=== PATIENT | male | born 1995 | race Caucasian/White ===

== ENCOUNTER 2019-01-08 22:16 | Emergency (ER) | payer BC ==
--- NOTE | 2019-01-08 23:13 | ED ---
Abdominal Pain/Male - HPI Summary HPI Summary: 23 yo male presents with vomiting, diarrhea, and abdominal pain. He tells me that he ate chicken wings and broccoli from the [employer] around 1800 this evening. Around 2200 he developed upper abdominal cramping and nausea. Had an episode of diarrhea and began vomiting. He took tylenol, but vomited again soon after. He called EMS due to vomiting and diarrhea for 2-3 hours this evening. Currently he is still vomiting every 20-30min, but has had not more loose stools. Endorses pain just above the umbilicus that is cramping in nature. Denies recent illness, fever, chills, SOB, chest pain, dysuria, back pain. - History of Current Complaint Chief Complaint: EDAbdPain Stated Complaint: GENERAL ILLNESS PER EMS Time Seen by Provider: 01/08/19 23:13 Hx Obtained From: Patient Onset/Duration: Sudden Onset Severity Initially: Mild Severity Currently: Mild Pain Intensity: 3 Pain Scale Used: 0-10 Numeric - Allergies/Home Medications Allergies/Adverse Reactions: Allergies Allergy/AdvReac Type Severity Reaction Status Date / Time No Known Allergies Allergy Verified 01/08/19 22:48 PMH/Surg Hx/FS Hx/Imm Hx Cardiovascular History: Denies: Hx Hypotension, Hx Hypertension Respiratory History: Denies: Hx Asthma, Hx Chronic Obstructive Pulmonary Disease (COPD) GI History: Denies: Hx Diverticulosis, Hx Gall Bladder Disease, Hx Gastroesophageal Reflux Disease Neurological History: Denies: Hx CVA, Hx Headaches - Surgical History Surgical History: None - Immunization History Immunizations Up to Date: Yes Infectious Disease History: No Infectious Disease History: Denies: Traveled Outside the [place] in Last 30 Days - Family History Known Family History: Positive: Non-Contributory - Social History Occupation: Student Lives: Dormitory/Roommates Alcohol Use: None Substance Use Type: Reports: None Smoking Status (MU): Never Smoked Tobacco Review of Systems Constitutional: Negative Eyes: Negative ENT: Negative Cardiovascular: Negative Respiratory: Negative Positive: Abdominal Pain, Vomiting, Diarrhea, Nausea Genitourinary: Negative Musculoskeletal: Negative Neurological: Negative Psychological: Normal All Other Systems Reviewed And Are Negative: No Physical Exam - Summary Physical Exam Summary: GENERAL: NAD. WDWN. No pain distress. SKIN: No rashes, sores, lesions, or open wounds. NECK: Supple. Nontender. No lymphadenopathy. CHEST: CTAB. No r/r/w. No accessory muscle use. Breathing comfortably and in no distress. CV: RRR. Pulses intact. Cap refill <2seconds ABDOMEN: Soft. NTTP. No distention or guarding. No CVA tenderness. Bowel sounds present NEURO: Alert. PSYCH: Age appropriate behavior. Triage Information Reviewed: Yes Vital Signs On Initial Exam: Initial Vitals Temp Pulse Resp BP Pulse Ox 98.2 F 78 20 119/79 100 01/08/19 22:20 01/08/19 22:20 01/08/19 22:20 01/08/19 22:20 01/08/19 22:20 Vital Signs Reviewed: Yes Procedures - Sedation Patient Received Moderate/Deep Sedation with Procedure: No Diagnostics - Vital Signs Vital Signs Temp Pulse Resp BP Pulse Ox 01/08/19 23:00 80 99 01/08/19 22:39 78 100 01/08/19 22:38 119/79 01/08/19 22:20 98.2 F 78 20 119/79 100 - Laboratory Lab Results: Laboratory Tests 01/08/19 01/08/19 01/08/19 23:38 23:40 23:40 WBC 11.7 H RBC 5.10 Hgb 16.0 Hct 47 MCV 92 MCH 31 MCHC 34 RDW 13 Plt Count 280 MPV 7.0 L Neut % (Auto) 92.1 Lymph % (Auto) 2.1 Sharkey % (Auto) 5.5 Eos % (Auto) 0.2 Baso % (Auto) 0.1 Absolute Neuts (auto) 10.8 H Absolute Lymphs (auto) 0.2 L Absolute Monos (auto) 0.6 Absolute Eos (auto) 0.0 Absolute Basos (auto) 0.0 Absolute Nucleated RBC 0.0 Nucleated RBC % 0.1 Sodium 135 Potassium 4.1 Chloride 103 Carbon Dioxide 23 Anion Gap 9 BUN 16 Creatinine 1.00 Est GFR ( Amer) 114.1 Est GFR (Non-Af Amer) 94.3 BUN/Creatinine Ratio 16.0 Glucose 148 H Lactic Acid 1.2 Calcium 10.3 Total Bilirubin 1.60 H AST 25 ALT 17 Alkaline Phosphatase 48 C-Reactive Protein 1.01 Total Protein 7.9 Albumin 4.8 Globulin 3.1 Albumin/Globulin Ratio 1.5 Lipase 14 Result Diagrams: 01/08/19 23:38 01/08/19 23:40 Lab Statement: Any lab studies that have been ordered have been reviewed, and results considered in the medical decision making process. Abdominal Pain Male Course/Dx - Course Course Of Treatment: In the ED course pt was given 1L NS, toradol, and zofran for his symptoms with complete resolution of his discomfort and vomiting. He states he is feeling much better. Exam is WNL without abdominal tenderness. Labs with slightly elevated WBC. Suspect gastroenteritis. He was given a po challenge with water and jello and tolerated well. Will dc with rx for zofran. Pt voiced understanding and agrees with the plan - Diagnoses Provider Diagnoses: Gastroenteritis Discharge ED - Sign-Out/Discharge Documenting (check all that apply): Patient Departure - Discharge Plan Condition: Stable Disposition: HOME Prescriptions: Ondansetron ODT TAB* [Zofran 4 MG Odt TAB*] 4 mg PO Q8H PRN #6 tab.odt PRN Reason: Nausea Patient Education Materials: Gastroenteritis (ED) Referrals: No Primary Care Phys,NOPCP [Primary Care Provider] - Additional Instructions: If you develop a fever, shortness of breath, chest pain, new or worsening symptoms - please call your PCP or go to the ED immediately. Advance your diet as tolerated starting with a BRAT diet of bananas, rice, applesauce, and toast - Billing Disposition and Condition Condition: STABLE Disposition: Home
[2019-01-08] MEDS ORDERED: NS 0.9% 1000 ML** 1,000 ML IV ONE (23:29)
[2019-01-08] MEDS ORDERED: Ondansetron INJ* 2 MG/ML VIAL IV ONE (23:30)
[2019-01-08] MEDS ORDERED: Ketorolac INJ* 30 MG/ML 1 ML VIAL IV ONE (23:30)
[2019-01-08 23:51] LABS: ABS Lymphocytes 0.2 10^3/ul (1.0-4.8); ABS Monocytes 0.6 10^3/ul (0-0.8); ABS Neutrophils 10.8 10^3/ul (1.5-7.7); Eosinophil % 0.2 %; Hematocrit 47 % (42-52); Lymphocyte % 2.1 %; Mean Corpuscular HGB Conc 34 g/dL (31-36); Mean Corpuscular Hemoglobin 31 pg (27-31); Mean Corpuscular Volume 92 fL (80-94); Nucleated Red Blood Cells % 0.1; Platelet Count 280 10^3/uL (150-450); Red Cell Distribution Width 13 % (10-15); White Blood Count 11.7 10^3/uL (3.5-10.8)
[2019-01-09 00:12] LABS: Albumin 4.8 g/dL (3.2-5.2); Albumin/Globulin Ratio 1.5 (1-3); C Reactive Protein 1.01 mg/L (<8.01); Calcium 10.3 mg/dL (8.6-10.3); EGFR African American 114.1 (>60); EGFR Non-African American 94.3 (>60); Globulin 3.1 g/dL (2-4); Potassium 4.1 mmol/L (3.5-5.0); Total Bilirubin 1.6 mg/dL (0.2-1.0); Total Protein 7.9 g/dL (6.4-8.9)
[2019-01-09] MEDS ORDERED: Ondansetron INJ* 2 MG/ML VIAL IV ONE (00:58)
[2019-01-09 03:08] VITALS: BP 110/64
== END 2019-01-09 03:05 | disposition home or self-care (01) ==
LOC: ED 22:16
DX: K52.9 Noninfective gastroenteritis and colitis, unspecified (principal)
CPT/HCPCS: 36415; 80053; 83605; 83690; 85025; 86140; 96361; 96374; 96375; 96376; 99283; J1885; J2405

== ENCOUNTER 2019-01-16 21:17 | Emergency (ER) | payer BC ==
[2019-01-16] MEDS ORDERED: NS 0.9% 1000 ML** 1,000 ML IV ONE (21:30)
--- NOTE | 2019-01-16 21:36 | ED ---
Syncope/Near Syncope - HPI Summary HPI Summary: Patient complains of one episode of near syncope, lightheadedness, seeing stars this evening. Episode occurred while patient was taking shower after exercising. Also states he had 2 episodes of left flank pain which lasted about 20 minutes, pain rated as mild. Also states cloudy brown urine tonight. Denies LOC, trauma, fever, cough, sore throat, CP, SOB, N/V/D, abdominal pain, change in BM. Medical history is none. Denies prior history of syncope or kidney stones. Positive family cardiac history. - History Of Current Complaint Time Seen by Provider: 01/16/19 21:18 Hx Obtained From: Patient Onset/Duration: Sudden Onset, Lasting Minutes Activity At Onset: Other Associated Head Trauma: No Aggravating Factor(s): Nothing Alleviating Factor(s): Spontaneous Resolution Associated Signs And Symptoms: Lightheadedness - Allergies/Home Medications Allergies/Adverse Reactions: Allergies Allergy/AdvReac Type Severity Reaction Status Date / Time No Known Allergies Allergy Verified 01/16/19 21:38 PMH/Surg Hx/FS Hx/Imm Hx Endocrine/Hematology History: Denies: Hx Anticoagulant Therapy Cardiovascular History: Denies: Hx Hypotension, Hx Hypertension Respiratory History: Denies: Hx Asthma, Hx Chronic Obstructive Pulmonary Disease (COPD) GI History: Denies: Hx Diverticulosis, Hx Gall Bladder Disease, Hx Gastroesophageal Reflux Disease History: Denies: Hx Dialysis Sensory History: Denies: Hx Legally Blind Opthamlomology History: Denies: Hx Eye Prosthesis EENT History: Denies: Hx Deafness Neurological History: Denies: Hx CVA, Hx Headaches Infectious Disease History: No Infectious Disease History: Denies: Traveled Outside the [place] in Last 30 Days - Family History Known Family History: Positive: Non-Contributory - Social History Alcohol Use: None Substance Use Type: Reports: None Smoking Status (MU): Never Smoked Tobacco Review of Systems Constitutional: Negative Eyes: Negative ENT: Negative Cardiovascular: Negative Respiratory: Negative Gastrointestinal: Negative Genitourinary: Negative Musculoskeletal: Negative Skin: Negative Neurological: Other Psychological: Normal All Other Systems Reviewed And Are Negative: Yes Physical Exam Triage Information Reviewed: Yes Vital Signs On Initial Exam: Initial Vitals Temp Pulse Resp BP Pulse Ox 98.7 F 69 18 124/72 100 01/16/19 21:20 01/16/19 21:20 01/16/19 21:20 01/16/19 21:20 01/16/19 21:20 Vital Signs Reviewed: Yes Appearance: Positive: Well-Appearing Skin: Positive: Warm Head/Face: Positive: Normal Head/Face Inspection Eyes: Positive: Normal Neck: Positive: Supple Respiratory/Lung Sounds: Positive: Clear to Auscultation Cardiovascular: Positive: Normal Abdomen Description: Positive: Nontender Musculoskeletal: Positive: Normal Neurological: Positive: Normal Psychiatric: Positive: Normal AVPU Assessment: Alert - [place] Coma Scale Best Eye Response: 4 - Spontaneous Best Motor Response: 6 - Obeys Commands Best Verbal Response: 5 - Oriented Coma Scale Total: 15 Procedures - Sedation Patient Received Moderate/Deep Sedation with Procedure: No Diagnostics - Vital Signs Vital Signs Temp Pulse Resp BP Pulse Ox 01/16/19 21:20 98.7 F 69 18 124/72 100 - Laboratory Result Diagrams: 01/16/19 21:37 01/16/19 21:37 Lab Statement: Any lab studies that have been ordered have been reviewed, and results considered in the medical decision making process. Course/Dx Course Of Treatment: Patient complains of one episode of near syncope, lightheadedness, seeing stars this evening. Episode occurred while patient was taking shower after exercising. Also states he had 2 episodes of left flank pain which lasted about 20 minutes, pain rated as mild. Also states cloudy brown urine tonight. Denies LOC, trauma, fever, cough, sore throat, CP, SOB, N/ V/D, abdominal pain, change in BM. Medical history is none. Denies prior history of syncope or kidney stones. Positive family cardiac history. Vital signs within normal limits. Labs unremarkable. EKG sinus rhythm, rate of 67, no prior EKG on file. Patient hydrated with 1 L normal saline. Ambulated in the ED without near syncopal or syncopal episode. Due to hematuria and mild left flank symptoms patient may have possible small kidney stone. No prior history of same. Advised patient to drink plenty of fluids and help flush possible small stone. Advised patient return to the ED for any worsening symptoms. - Diagnoses Provider Diagnoses: Near syncope Discharge ED - Sign-Out/Discharge Documenting (check all that apply): Patient Departure - Discharge Plan Condition: Stable Disposition: HOME Patient Education Materials: Near Syncope (ED) Referrals: No Primary Care Phys,NOPCP [Primary Care Provider] - Additional Instructions: Follow-up with [facility]. Drink plenty of fluids to maintain hydration. Return to the ED for any worsening symptoms. - Billing Disposition and Condition Condition: STABLE Disposition: Home
[2019-01-16 21:44] LABS: ABS Basophils 0.1 10^3/ul (0-0.2); ABS Eosinophils 0.1 10^3/ul (0-0.6); ABS Lymphocytes 2.1 10^3/ul (1.0-4.8); ABS Monocytes 0.7 10^3/ul (0-0.8); ABS Neutrophils 6.4 10^3/ul (1.5-7.7); Hematocrit 42 % (42-52); Hemoglobin 14.4 g/dL (14.0-18.0); Lymphocyte % 22.7 %; Mean Corpuscular HGB Conc 34 g/dL (31-36); Mean Corpuscular Hemoglobin 31 pg (27-31); Mean Corpuscular Volume 91 fL (80-94); Mean Platelet Volume 6.6 fL (7.4-10.4); Nucleated Red Blood Cells % 0.1; Platelet Count 345 10^3/uL (150-450); Red Blood Count 4.65 10^6 /uL (4.18-5.48); Red Cell Distribution Width 13 % (10-15); White Blood Count 9.4 10^3/uL (3.5-10.8)
[2019-01-16 21:51] LABS: Urine Appearance Cloudy; Urine Bacteria Absent (Absent); Urine Bilirubin Negative (Negative); Urine Blood 3+ (Negative); Urine Color Yellow; Urine Glucose Negative (Negative); Urine Ketones Negative (Negative); Urine Nitrite Negative (Negative); Urine Protein 2+(100 mg/dL) (Negative); Urine Red Blood Cell 3+(>10/hpf) (Absent); Urine Specific Gravity 1.023 (1.010-1.030); Urine Squamous Epithelial Cell Present (Absent); Urine Urobilinogen Negative (Negative); Urine White Blood Cell Absent (Absent)
[2019-01-16 21:58] LABS: Albumin 4.3 g/dL (3.2-5.2); Albumin/Globulin Ratio 1.6 (1-3); BUN/Creatinine Ratio 16.8 (8-20); C Reactive Protein 2.08 mg/L (<8.01); Calcium 9.5 mg/dL (8.6-10.3); EGFR African American 112.8 (>60); EGFR Non-African American 93.2 (>60); Globulin 2.7 g/dL (2-4); Potassium 3.6 mmol/L (3.5-5.0); Total Bilirubin 0.6 mg/dL (0.2-1.0)
[2019-01-16 22:18] LABS: TSH (Thyroid Stimulating Horm) 3.71 mcIU/mL (0.34-5.60)
[2019-01-16 22:55] VITALS: BP 130/70
== END 2019-01-16 22:43 | disposition home or self-care (01) ==
LOC: ED 21:17
DX: R55 Syncope and collapse (principal); R42 Dizziness and giddiness
CPT/HCPCS: 36415; 80053; 81003; 81015; 84443; 85025; 86140; 93005; 96360; 99282